=== PATIENT | female | born 1980 | race Two or more races ===

== ENCOUNTER 2016-12-14 23:10 | Emergency (ER) | payer MEDICAID ==
--- NOTE | ~2016-12-14 | ER ---
ADMIT: 12/14/2016 RM/LOC: ER [facility] MR#: [id number] [facility] [address] [place], [place] [id number] [place] [address] [place] [address] Emergency Room Report SEX: F AGE: 36 : 1980 DATE: 12/14/2016 ADDENDUM: A 36-year-old female, comes in complaining of intermittent epigastric abdominal pain. It has been going on for probably 5 to 6 months. On examination, she has some mild epigastric tenderness. She initially had CBC and chemistries done, which were unremarkable. Urinalysis was also unremarkable, and she was not . She was given a GI cocktail with significant improvement in her symptoms. She is discharged home to use Prilosec and Pepcid [id number] and follow up with Dr. Ibarra if she is not significantly improved. DIAGNOSES: 1. Abdominal pain. 2. Gastroesophageal reflux disease. Kirby Dong MD/ javed JOB #: [id number] CC: Kirby Dong MD, Attending Physician
== END 2016-12-15 00:45 | disposition home or self-care (01) ==
LOC: ER 23:10
DX: K21.9 Gastro-esophageal reflux disease without esophagitis (principal); F17.210 Nicotine dependence, cigarettes, uncomplicated; Z98.51 Tubal ligation status